=== PATIENT | female | born 1980 | race Caucasian/White ===

== ENCOUNTER 2022-01-21 11:53 | Outpatient (CLI) | payer BC, SELFPAY ==
[2022-01-21 17:25] LABS: Chloride* 104 mmol/L (96-114); Potassium* 4.7 mmol/L (3.6-5.1); Sodium* 136 mmol/L (135-149)
[2022-01-21 17:28] LABS: Carbon Dioxide* 25 mmol/L (20-32); Cholesterol* 218 mg/dL (90-199); Triglycerides* 71 mg/dL (40-149)
[2022-01-21 17:29] LABS: HDL Cholesterol* 67 mg/dL (>=50); LDL Cholesterol Calculated 137 mg/dL (<100)
[2022-01-21 17:46] LABS: Vitamin D 25 Hydroxy* 48 ng/mL (30-80)
[2022-01-21 18:00] LABS: Hepatitis B Surface Antigen* Negative (Negative)
[2022-01-21 18:17] LABS: Hepatitis C Virus Antibody* Negative (Negative)
[2022-01-21 18:43] LABS: HIV 1/2/P24 Combo Screen* Negative (Negative)
[2022-01-21 23:19] LABS: Chlamydia DNA Amplified* NOT DETECTED (No Detected); GC DNA Amplified* NOT DETECTED (No Detected)
[2022-01-24 09:58] LABS: Rapid Plasma Reagin (RPR) Non Reactive (Non Reactive)
== END 2022-01-21 11:54 | disposition home or self-care (01) ==
PROVIDERS: PCP Obstetrics & Gynecology; Visit Provider Obstetrics & Gynecology
DX: Z01.419 Encounter for gynecological examination (general) (routine) without abnormal findings (principal); Z11.3 Encounter for screening for infections with a predominantly sexual mode of transmission
CPT/HCPCS: 80051; 80061; 82306; 84443; 86592; 86703; 86803; 87340; 87491; 87591

== ENCOUNTER 2022-08-18 13:51 | Outpatient (CLI) | payer BC, SELFPAY ==
--- NOTE | 2022-08-18 14:00 | CRLHL7_ITS ---
For Patients: As a result of the Century Cures Act, medical imaging exams and procedure reports are released immediately into your electronic medical record. You may view this report before your referring provider. If you have questions, please contact your health care provider. BILATERAL SCREENING MAMMOGRAM WITH COMPUTER-AIDED DETECTION AND TOMOSYNTHESIS TECHNIQUE: CC and MLO views were obtained. These mammographic images have been obtained using full-field digital technique. These mammographic images were interpreted with the benefit of computer-aided detection. Breast Tomosynthesis was used in this interpretation. COMPARISON FILM: 01/06/20; 01/02/19; 12/25/18 FINDINGS: The breasts are heterogeneously dense, which may obscure small masses. IMPRESSION: There is no radiographic evidence for malignancy. ASSESSMENT: BI-RADS Category 1: Negative RECOMMENDATION: Routine screening mammogram in 1 year. A lay language report of this examination will be provided to the patient. Cheikh Garcia M.D. Diagnostic Radiologist [email or web address] MARCUS/abram Transcribed: 12:39 p.m. PT/Dictated by: Cheikh Garcia MD @ 08/19/2022 8:28:00 AM (Electronically Signed)
== END 2022-08-18 13:52 | disposition home or self-care (01) ==
LOC: MAMMO 13:53
PROVIDERS: Visit Provider Obstetrics & Gynecology
DX: Z12.31 Encounter for screening mammogram for malignant neoplasm of breast (principal); R92.2 Inconclusive mammogram
CPT/HCPCS: 77063; 77067

== ENCOUNTER 2023-02-16 07:15 | Outpatient (CLI) | payer BC, SELFPAY ==
--- NOTE | 2023-02-16 07:15 | CRLHL7_ITS ---
For Patients: As a result of the Century Cures Act, medical imaging exams and procedure reports are released immediately into your electronic medical record. You may view this report before your referring provider. If you have questions, please contact your health care provider. BILATERAL BREAST MRI WITHOUT AND WITH GADOLINIUM CLINICAL HISTORY: Strong family history of breast cancer due to family history. Her mother was diagnosed at age 36. INDICATION FOR BREAST MRI: Screening breast MRI in this high-risk woman. COMPARISON STUDIES: BILATERAL mammogram 08/18/2022, breast MRI 11/26/2021. CONTRAST: 20 mL Dotarem. TECHNIQUE: The patient was positioned prone using a breast coil. Multiple imaging sequences were obtained using 1-1.5 mm thick slices with no gap. The image sequences include T2-weighted STIR in the axial plane, T1-weighted nonfat-saturated gradient echo in the axial plane, pre- and post-contrast T1-weighted FLASH 3D with fat suppression in the axial plane, and T1-weighted FLASH high resolution 3D with fat suppression in the sagittal plane. Image post-processing was performed on a [employer] Ch[employer] workstation. Complex 3D rendering including maximum intensity projections (MIPS) and volumetric renderings were obtained to optimize visualization of the extent of pathology and relationship to the nipple, skin, and chest wall. This aids in determining feasibility of breast conservation surgery. Subtraction, multiplanar reconstruction, mean curve determination, and angiogenesis mapping were also performed. The study was technically adequate. FINDINGS: Amount of Fibroglandular Tissue: Scattered fibroglandular tissue. Breast Background Enhancement: Moderate background enhancement. RIGHT Breast: No suspicious mass or non mass enhancement. LEFT Breast: No suspicious mass or non mass enhancement. Lymph Nodes: Negative for lymphadenopathy. IMPRESSIONS AND RECOMMENDATIONS: Negative for signs of malignancy. Follow up as clinically needed. BI-RADS Category 1: Negative Dictated by Gina Huddleston MD @ 02/20/2023 3:44:46 PM/anna ISABELLA/Dictated by: Gina Huddleston MD @ 02/20/2023 3:45:00 PM (Electronically Signed)
--- NOTE | 2023-02-22 11:22 | ONC.NURNOTE ---
Lm for pt reviewing MRI results are negative for malignancy.
== END 2023-02-16 07:16 | disposition home or self-care (01) ==
LOC: MRI 07:15
PROVIDERS: PCP Obstetrics & Gynecology; Visit Provider Surgery
DX: Z80.3 Family history of malignant neoplasm of breast (principal); Z12.39 Encounter for other screening for malignant neoplasm of breast
CPT/HCPCS: 77049; A9575

== ENCOUNTER 2023-07-19 10:06 | Outpatient (CLI) | payer BC, SELFPAY ==
--- OUTSIDE RECORDS SUMMARY | 2023-07-19 10:08 | XMS_ITS | Clinical Summary ---
Author Name Unknown Organization [facility] Address [place], [place] [address] Care Team Providers Care House Designer Name Role Phone Jimmie Neal NP Primary Care Provider Allergies No known active allergies Medications Medication Sig Dispensed Refills Start Date End Date Status CITALOPRAM HYDROBROMIDE (CITALOPRAM ORAL) Take 40 mg by mouth once daily. 0 Active CHOLECALCIFEROL, VITAMIN D3, (VITAMIN D3 ORAL) Take 1 tablet by mouth once daily. 0 Active DOCOSAHEXANOIC ACID/EPA (FISH OIL ORAL) Take 1 capsule by mouth once daily. 0 Active Crutch For home use. 1 Device 0 12/27/2013 Active Social History Tobacco Use Types Packs/Day Years Used Date Smoking Tobacco: Never Assessed Sex and Gender Information Value Date Recorded Sex Assigned at Not on file Gender Identity Not on file Sexual Orientation Not on file Last Filed Vital Signs Vital Sign Reading Time Taken Comments Blood Pressure 131/74 12/27/2013 8:18 PM CDT Pulse 83 12/27/2013 8:18 PM CDT Temperature 37.8 ??C (100 ??F) 12/27/2013 8:18 PM CDT Respiratory Rate 16 12/27/2013 8:18 PM CDT Oxygen Saturation 98% 12/27/2013 8:18 PM CDT Inhaled Oxygen Concentration - - Weight 90.7 kg (200 lb) 12/27/2013 8:18 PM CDT Height 162.6 cm (5' 4.02) 12/27/2013 8:18 PM CD T Body Mass Index 34.31 12/27/2013 8:18 PM CDT Plan of Treatment Health Maintenance Due Date Last Done Comments COVID-19 vaccine series (#1) 02/03/1983 Tdap 1993 Depression screening for age 12+ 1994 HIV for age 15-65 1997 BMI (ht and wt on same day) for age 18+ 2000 Hepatitis C screening for age 18-79 2000 Tetanus booster 2002 Pap test for age 21-65 01/14/2023 0, 01/15/2020, 01/02/2019, Additional history exists Influenza for age 9-49 03/03/2023 Pneumococcal series for age 6-64 Aged Out No longer eligible based on patient's age to complete this topic Care Teams House Designer Relationship Specialty Start Date End Date Jimmie Neal NP PCP - General Nurse Practitioner 10/18/13
--- OUTSIDE RECORDS SUMMARY | 2023-07-19 10:08 | XMS_ITS | Encounter Summary ---
Author Name Unknown Organization [facility] Address [address] [place] [address] Care Team Providers Care Sponge Buffer Name Role Phone Pcp, Pt Declines MD Primary Care Provider [phone] Reason for Visit * Procedure/Equipment (Routine) - Incomplete Specialty Diagnoses / Procedures Referred By Contac t Referred To Contact Procedures Ortho Ultrasound Liberty Lyles MD [address] [id number] Referral ID Status Reason Start Date Expiration Date V isits Requested Visits Authorized [id number] Incomplete 07/17/2023 10/15/2024 1 1 Encounter Details Date Type Department Care Team Description 07/17/2023 11:40 AM DEPUTY COUNTY COUNSEL Ancillary Procedure [address] [address] Liberty Lyles MD [address] [id number] Social History Tobacco Use Types Packs/Day Years Used Date Smoking Tobacco: Never Alcohol Use Standard Drinks/Week Comments Yes 0 (1 standard drink = 0.6 oz pur e alcohol) Sex and Gender Information Value Date Recorded Sex Assigned at Not on file Gender Identity Not on file Sexual Orientation Not on file documented as of this encounter Plan of Treatment Not on file documented as of this encounter Procedures Procedure Name Priority Date/Time Associated Diagnosis Comments ORTHO ULTRASOUND Routine 07/17/2023 11:3 6 AM DEPUTY COUNTY COUNSEL documented in this encounter Results * Ortho Ultrasound (07/17/2023 11:36 AM DEPUTY COUNTY COUNSEL) Anatomical Region Laterality Modality Ultrasound Narrative 07/17/2023 11:36 AM DEPUTY COUNTY COUNSEL This imaging has been performed by the ordering department and is not read by a Radiologist, see notes in encounter for details on study. Liberty Lyles MD RAD US documented in this encounter Visit Diagnoses Not on filedocumented in this encounter Care Teams Sponge Buffer Relationship Specialty Start Date End Date Pcp, [place] [address] PCP - General 12/12/16 documented as of this encounter
--- OUTSIDE RECORDS SUMMARY | 2023-07-19 10:08 | XMS_ITS | Clinical Summary ---
Author Name Unknown Organization [facility] Address [address] [place] [address] Care Team Providers Care Watch Engine Operator Name Role Phone Pcp, Pt Declines Primary Care Provider [phone] Source Comments You are receiving this document as you are listed as the primary care provider,follow-up provider, or the patient has been referred to you for consultation.This is in compliance with the Medicare andN[facility] Hospitalca[facility] EHR Incentive Program,which states Providers who transition their patient to another setting of careor provider of care or refers their patient to another provider of care shouldprovide summary care record for each transition of care or referral. [facility] Allergies No known active allergies Medications Medication Sig Dispensed Refills Start Date End Date Status citalopram (CELEXA) 40 MG tablet Take 40 mg by mouth daily. 0 Active valACYclovir (VALTREX) 1 G tablet Take 1,000 mg by mouth two times a day. 0 Active hydrOXYzine pamoate (VISTARIL) 25 MG capsule Take 1-2 Caps by mouth 4 times daily as needed. 50 Cap 1 03/10/2017 Active HYDROcodone-acetaminophe n (NORCO) 5-325 MG tablet Take 1-2 Tabs by mouth every 4 hours as needed. 40 Tab 0 03/10/2017 Active LORazepam (ATIVAN) 1 MG tablet 0 01/13/2021 Active nitrofurantoin monohydrate macrocrystal (MACROBID) 100 MG capsule Take 100 mg by mouth two times a day. 0 12/02/2020 Active Active Problems No known active problems Encounters Date Type Department Care Team Description 07/17/2023 11:40 AM SENIOR DATA MINING ANALYST Ancillary Procedure [facility] [address] [place] [address] Liberty Lyles MD 07/17/2023 11:20 AM SENIOR DATA MINING ANALYST Procedure Visit [address] [address] Liberty Lyles MD Procedure 07/07/2023 3:20 PM SENIOR DATA MINING ANALYST Office Visit [address] [address] Dmitriy Lawrence MD Pain of right hip (Primary Dx) 06/28/[address] [address] Dmitriy Lawrence MD QUESTIONS, GENERAL 06/22/2023 4:00 PM SENIOR DATA MINING ANALYST Ancillary Procedure [facility] Radiology MRI [address] [facility] [place] [address] Dmitriy Lawrence MD Hip flexor tendonitis, right 06/08/[address] [address] Dmitriy Lawrence MD Prior Authorization For Imaging (MRI ) 05/26/2023 4:05 PM SENIOR DATA MINING ANALYST Ancillary Procedure [facility] Radiology [address] [place] [address] Dmitriy Lawrence MD Pain of right hip 05/26/2023 3:30 PM SENIOR DATA MINING ANALYST Office Visit [address] [address] Dmitriy Lawrence MD Hip flexor tendonitis, right (Primary Dx) from Last 3 Months Social History Tobacco Use Types Packs/Day Years Used Date Smoking Tobacco: Never Alcohol Use Standard Drinks/Week Comments Yes 0 (1 standard drink = 0.6 oz pur e alcohol) Sex and Gender Information Value Date Recorded Sex Assigned at Not on file Gender Identity Not on file Sexual Orientation Not on file Last Filed Vital Signs Vital Sign Reading Time Taken Comments Blood Pressure 110/90 03/10/2017 10:35 AM CDT Pulse 66 03/10/2017 10:35 AM CDT Temperature 37.1 ??C (98.7 ??F) 03/10/2017 10:05 AM C DT Respiratory Rate 16 03/10/2017 10:35 AM CDT Oxygen Saturation 97% 03/10/2017 10:35 AM CDT Inhaled Oxygen Concentration - - Weight 102.1 kg (225 lb) 02/16/2021 7:39 AM CDT Height 162.6 cm (5' 4) 02/16/2021 7:39 AM CDT Body Mass Index 38.62 02/16/2021 7:39 AM CDT Plan of Treatment Health Maintenance Due Date Last Done Comments Cervical Cancer Screening Due 1982 Hep C Screening (Preventive Services) 1982 HepB (1) 1982 COVID-19 Vaccine (#1) 02/03/1983 IPV (Polio) (3 of 3 - 4-dose series) 08/13/1988 02/11/1988, 08/16/1984 HIV Screening (Preventive Services) 1998 Adult Preventive Visit 2000 Influenza (#1) 2023 DTaP/Tdap/Td (5 - Tdap) 12/26/2027 12/26/19 18, 11/07/1997, 02/11/1988, Additional history exists Zoster/Shingles (1 of 2) 2032 HPV Vaccine Aged Out No longer eligi ble based on patient's age to complete this topic HepA Aged Out No longer eligi ble based on patient's age to complete this topic Hib Aged Out No longer eligi ble based on patient's age to complete this topic MCV4 Aged Out No longer eligi ble based on patient's age to complete this topic Pneumococcal Aged Out No longer eligi ble based on patient's age to complete this topic Medical Devices Implanted Type Area Fluid Jet Cutter Operator Device Identifier Shelf Expiration Date Model / Serial / Lot Scr Canc Lg Hex 6.5x50 16-Thrd - [id number] Implanted:Qty: 1 on 03/10/2017 by Roc Eddy MD at [employer]: [employer] 03/10/2017 [id number] / NA / NA Procedures Procedure Name Priority Date/Time Associated Diagnosis Comments ORTHO ULTRASOUND Routine 07/17/2023 11:3 6 AM SENIOR DATA MINING ANALYST MR HIP RT WO IV CONT Routine 06/22/2023 5:07 PM SENIOR DATA MINING ANALYST Hip flexor tendonitis, right XR LUMBAR SPINE 2 VIEWS Routine 05/26/2023 4:13 PM SENIOR DATA MINING ANALYST Pain of right hip from Last 3 Months Results * Ortho Ultrasound (07/17/2023 11:36 AM SENIOR DATA MINING ANALYST) Anatomical Region Laterality Modality Ultrasound Narrative 07/17/2023 11:36 AM SENIOR DATA MINING ANALYST This imaging has been performed by the ordering department and is not read by a Radiologist, see notes in encounter for details on study. Liberty Lyles MD RAD US * MR Hip Rt WO IV Cont (06/22/2023 5:07 PM SENIOR DATA MINING ANALYST) Anatomical Region Laterality Modality Lower Extremity, Skeletal, Pelvis, Hip, Thigh, M SK Right Magnetic Resonance 06/22/2023 5:07 PM SENIOR DATA MINING ANALYST Impressions 06/23/2023 7:53 AM SENIOR DATA MINING ANALYST TECHNIQUE: ??Routine MRI of the right hip was performed without contrast. COMPARISON: ??Radiograph 02/17/2023. FINDINGS: MUSCLES AND TENDONS: ??Mild tendinopathy of the distal right gluteus minimus and medius tendons at the greater trochanteric insertion. Focal feathery intramuscular edema superficial proximal lateral aspect of the right gluteus minimus medius and adjacent subcutaneous fat compatible with soft contusion/injection. Other muscles and tendons are within normal limits. MARROW AND SOFT TISSUES: ??Marrow signal is normal without evidence of fracture or avascular necrosis. There is no evidence of soft tissue mass. 1 cm round T2 hypointense lesion within the endometrium is suggestive of a submucosal fibroid. JOINT: ??There is no significant degenerative arthritis or evidence of focal cartilage defect. There are no osteocartilaginous loose bodies within the joint. There is no evidence of femoral acetabular impingement. The ligamentum teres is normal. ACETABULAR LABRUM: ??The acetabular labrum is normal without evidence of tear. IMPRESSION: ?? 1. Mild tendinopathy of the distal right gluteus minimus and medius tendons at the greater trochanteric insertion. 2. Focal feathery intramuscular edema superficial proximal lateral aspect of the right gluteus minimus medius and adjacent subcutaneous fat compatible with soft contusion/injection. 3. 1 cm round T2 hypointense lesion within the endometrium is suggestive of a submucosal fibroid. Recommend pelvic ultrasound for confirmation. 4. No significant arthropathy in the right hip. Narrative Procedure Note Chester Desir MD - 06/23/2023 IMPRESSION TECHNIQUE: Routine MRI of the right hip was performed without contrast. COMPARISON: Radiograph 02/17/2023. FINDINGS: MUSCLES AND TENDONS: Mild tendinopathy of the distal right gluteusminimus and medius tendons at the greater trochanteric insertion. Focalfeathery intramuscular edema superficial proximal lateral aspect of theright gluteus minimus medius and adjacent subcutaneous fat compatible withsoft contusion/injection. Other muscles and tendons are within normallimits. MARROW AND SOFT TISSUES: Marrow signal is normal without evidence offracture or avascular necrosis. There is no evidence of soft tissue mass.1 cm round T2 hypointense lesion within the endometrium is suggestive of asubmucosal fibroid. JOINT: There is no significant degenerative arthritis or evidence offocal cartilage defect. There are no osteocartilaginous loose bodieswithin the joint. There is no evidence of femoral acetabular impingement.The ligamentum teres is normal. ACETABULAR LABRUM: The acetabular labrum is normal without evidence oftear. IMPRESSION: 1. Mild tendinopathy of the distal right gluteus minimus and mediustendons at the greater trochanteric insertion. 2. Focal feathery intramuscular edema superficial proximal lateral aspectof the right gluteus minimus medius and adjacent subcutaneous fatcompatible with soft contusion/injection. 3. 1 cm round T2 hypointense lesion within the endometrium is suggestiveof a submucosal fibroid. Recommend pelvic ultrasound for confirmation. 4. No significant arthropathy in the right hip. Dmitriy Lawrence MD RAD MRI * XR Lumbar Spine 2 Views (05/26/2023 4:13 PM SENIOR DATA MINING ANALYST) Anatomical Region Laterality Modality Spine, L-Spine Digital Radiogra phy 05/26/2023 4:04 PM SENIOR DATA MINING ANALYST Impressions 05/26/2023 4:14 PM SENIOR DATA MINING ANALYST COMPARISON: ??None. FINDINGS: ??Two views were obtained. ??No lumbar spine fracture or subluxation is identified. ??Vertebral disk space height and alignment appear normal. Narrative Procedure Note Terry Gould MD - 05/26/2023 IMPRESSION COMPARISON: None. FINDINGS: Two views were obtained. No lumbar spine fracture orsubluxation is identified. Vertebral disk space height and alignmentappear normal. Dmitriy Lawrence MD RAD GD from Last 3 Months Care Teams Watch Engine Operator Relationship Specialty Start Date End Date Pcp, Pt MD Leyda [place], [place] [id number] PCP - General 12/12/16
--- OUTSIDE RECORDS SUMMARY | 2023-07-19 10:08 | XMS_ITS | Encounter Summary ---
Author Name Unknown Organization [facility] Address [address] [place] [address] Care Team Providers Care Virtualization Engineer Name Role Phone Pcp, Pt Declines MD Primary Care Provider [phone] Reason for Referral * (Routine) - New Request Specialty Diagnoses / Procedures Referred By Contac t Referred To Contact Diagnoses Pain of right hip Tendinopathy of right gluteal region Procedures Triamcinolone Acet Inj (40 mg) Liberty Lyles MD [address] [place] [address] Referral ID Status Reason Start Date Expiration Date V isits Requested Visits Authorized [id number] New Request 07/17/2023 10/15/2024 1 1 EX OPERATOR * Procedure/Equipment (Routine) - Incomplete Specialty Diagnoses / Procedures Referred By Contac t Referred To Contact Procedures Ortho Ultrasound Liberty Lyles MD [address] [place] [address] Referral ID Status Reason Start Date Expiration Date V isits Requested Visits Authorized [id number] Incomplete 07/17/2023 10/15/2024 1 1 EX OPERATOR Reason for Visit * Reason Comments Procedure * Consult/Transfer Care (Routine) - New Request Specialty Diagnoses / Procedures Referred By Contac t Referred To Contact Diagnoses Pain of right hip Dmitriy Lawrence MD [address] [facility] [place] [address] Referral ID Status Reason Start Date Expiration Date V isits Requested Visits Authorized [id number] New Request 07/07/2023 10/05/2024 1 1 Encounter Details Date Type Department Care Team Description 07/17/2023 11:20 AM VORTEX OPERATOR Procedure Visit [facility] [address] [place] [id number] Liberty Lyles MD [address] [place] [address] Procedure Social History Tobacco Use Types Packs/Day Years Used Date Smoking Tobacco: Never Alcohol Use Standard Drinks/Week Comments Yes 0 (1 standard drink = 0.6 oz pur e alcohol) Sex and Gender Information Value Date Recorded Sex Assigned at Not on file Gender Identity Not on file Sexual Orientation Not on file documented as of this encounter Patient Instructions * Patient Instructions* Jerry Lamb, ATC - 07/17/2023 11:20 AM VORTEX OPERATOR Thank you for choosing [facility] for your health care visit today. Please read the contents below for important information regarding today's appointment. Medication Requests: Prescriptions are not filled on weekends or on weekdays after 3:00 PM. For all medication refills: Request a refill using [employer] or contact your pharmacy. Radiology/MRI Scheduling: To schedule an MRI at [facility] please call [phone]. For [facility] please call [phone]. For [facility] please call [phone]. For [facility] please call [phone]. For [facility] please call [phone]. Medical Records/Imaging Requests: For Medical Records please call [phone]. For Images (CD) please call [phone]. [facility] Workers' Compensation [address] [place], [place] [address] (Phone) What is Know Your Cost? Know Your Cost is a service for patients and patient/members to call and receive personalized cost information and estimates across our care group. The phone number is (COST) and is open Monday - Monday from 8 a.m[address] to [address] Liberty Lyles MD Sports & Orthopedic Medicine [facility] Paperwork Requests/Questions Regarding Surgery Scheduling: All paperwork takes up to 10 business days to complete. Rocket Scientist: Jessica Holt Navigator: Alejo Cochran ATC Diagnosis: Diagnosis and Associated Orders ICD-10-CM 1. Pain of right hip M25.551 2. Tendinitis of right hip flexor M76.891 3. Hip flexor tendonitis, right M76.891 Tests Needed: None Treatment Plan: - Right intra-articular hip injection and right greater trochanteric bursa injection performed. Injection Today: Steroid Injection: Post injection instructions given. Watch for any sign of infection: Red, hot to touch and swollen, call or return immediately if so. Ice twice today for 20 minutes each time and three times tomorrow (20 minutes each session) for symptom management. OTC meds for pain only as needed (Tylenol extra strength-500mg) It is common to have facial flushing for a few days. You can also occasionally experience a feelingof restlessness for a few days after the injection. Any other concerns, give us a call. Follow up with PCP for general medical issues. The injection you received today may take 7-10 days to begin to reduce your pain and swelling. Cannot have a repeat steroid injection any sooner than 3 months. Cannot have a total joint replacement within 3 months of the last injection on affected body part due to infection risk. If you are a known diabetic, make sure to increase the frequency you check your blood sugars. Adjust accordingly. Steroid injections will increase your blood sugars for about 1 week. Follow-Up: You will follow up with Dr. Lawrence. Directions/Parking Instructions for [facility] is located in the [facility] in [facility]. If you are getting dropped off: Use the building main entrance located at [address] [place] [address]. Enter the building and [facility]. If you are driving/parking: [facility] has reserved Patient parking spots and validated parking in the parking garage located at [address] [facility]. The parking lot entrance is on your right between [address] Even if the parking ramp says FULL or Surcharge Pricing you may enter the ramp and use one of the [facility] Patient Parking spots free of charge. Take the elevators up to the 2nd floor. Walk straight out of the elevators toward [facility] and [facility] will be on your left. EX OPERATOR documented in this encounter Progress Notes * Liberty Lyles MD - 07/17/2023 11:20 AM CST Images from the original note were not included. Primary Care Sports Medicine Physician Liberty Lyles MD [facility] 42 y.o. Female : 1980 Referring physician: Dmitriy Lawrence MD [address] [facility] [place] [address] Ultrasound Guided Right IA hip and GTB Injection INDICATION: Right hip pain Referring MD: Dr. Lawrence Right Hip Joint Injection The risks, benefits, and alternatives were discussed with the patient who gave full verbal consent to proceed. A final pause was performed prior to the procedure to verify patient identification and site of procedure. Ultrasound imaging was used to identify the area for the injection and surrounding structures. The skin over the area to be injected was cleansed with chloraprep. Under ultrasound guidance the hip joint was visualized. The injection was performed under continuous ultrasound guidance. A 22-gauge 3.5 inch needle was used to inject 4cc of 1% lidocaine for local anesthesia. The needle was then advanced and 40 mg of triamcinolone and 4 cc of 0.5% ropivacaine was injected into the hip joint. Needle placement was confirmed within the joint under direct visualization using ultrasound. A sterile Band-Aid was applied. Patient tolerated the injection well and was discharged without complication. Images were saved permanently to the PACS system. Pre-procedure pain level 7/10, postprocedure pain level 7/10. Right Greater Trochanteric Bursa Injection The risks, benefits, and alternatives were discussed with the patient who gave full verbal consent to proceed. A final pause was performed prior to the procedure to verify patient identification and site of procedure. Ultrasound imaging was used to identify the area for the injection and surrounding structures. The skin over the area to be injected was cleansed with chloraprep. Under ultrasound guidance the greater trochanteric bursa was visualized. The injection was performed under continuous ultrasound guidance. A 22-gauge needle was used to inject 4cc of 1% lidocaine for local anesthesia. The needle was then advanced and 40 mg of triamcinolone and 4 cc of 0.5% ropivacaine was injected into the bursa. Needle placement was confirmed within the bursa under direct visualization using ultrasound. A sterile Band-Aid was applied. Patient tolerated the injection well and was discharged without complication. Images were saved permanently to the PACS system. Pre-procedure pain level 7/10, pos tprocedure pain level 7/10. Will follow up with Dr. Lawrence Post injection care and signs and symptoms to monitor for were discussed with the patient and provided with patient expressing understanding and agreement. All questions were answered. This document serves as a record of all services personally provided by Liberty Lyles MD. Documentation provided by Jerry Lamb ATC based on my personal observation of the services provided and the providers statements to me. Liberty Lyles MD Sports Medicine Physician ASHER Perdomo EX OPERATOR documented in this encounter Plan of Treatment Not on file documented as of this encounter Procedures Procedure Name Priority Date/Time Associated Diagnosis Comments ORTHO ULTRASOUND Routine 07/17/2023 11:3 6 AM VORTEX OPERATOR documented in this encounter Results * Ortho Ultrasound (07/17/2023 11:36 AM VORTEX OPERATOR) Anatomical Region Laterality Modality Ultrasound Narrative 07/17/2023 11:36 AM VORTEX OPERATOR This imaging has been performed by the ordering department and is not read by a Radiologist, see notes in encounter for details on study. Liberty Lyles MD [facility] documented in this encounter Visit Diagnoses Diagnosis Pain of right hip- Primary Tendinitis of right hip flexor Hip flexor tendonitis, right Tendinopathy of right gluteal region documented in this encounter Care Teams Virtualization Engineer Relationship Specialty Start Date End Date Pcp, [place] [address] PCP - General 12/12/16 documented as of this encounter
--- OUTSIDE RECORDS SUMMARY | 2023-07-19 10:09 | XMS_ITS | Encounter Summary ---
Author Name Unknown Organization [facility] Address [address] [place] [address] Care Team Providers Care Ice Crusher Name Role Phone Pcp, Pt Declines Primary Care Provider [phone] Reason for Visit * Procedure/Equipment (Routine) - Incomplete Specialty Diagnoses / Procedures Referred By Contac t Referred To Contact Diagnoses Pain of right hip Procedures XR Hip Rt 1 View Dmitriy Lawrence MD [address] [place] [address] [place] [address] Referral ID Status Reason Start Date Expiration Date V isits Requested Visits Authorized [id number] Incomplete 02/17/2023 05/18/2024 1 1 Encounter Details Date Type Department Care Team Description 02/17/2023 2:05 PM CDT Ancillary Procedure [facility] [address] [place], [place] [address] Dmitriy Lawrence MD [address] [place] [address] [place] [id number] Pain of right hip Social History Tobacco Use Types Packs/Day Years [...] Procedure Name Priority Date/Time Associated Diagnosis Comments XR PELVIS 1-2 VIEWS Routine 02/17/2023 2 :12 PM CDT Pain of right hip XR HIP RT 1 VIEW Routine 02/17/2023 2:12 PM CDT Pain of right hip documented in this encounter Results * XR Hip Rt 1 View (02/17/2023 2:12 PM CDT) Anatomical Region Laterality Modality Lower Extremity, Hip Digital Rad iography Narrative 05/06/2023 3:02 PM CDT AP pelvis, bilateral false profile and bilateral modified byrd hip films reviewed by me today. These demonstrate no fracture, dislocation, or significant joint interval narrowing. acetabular coverage is within normal limits and no cam lesions noted. Dmitriy Lawrence MD RAD GD * XR Pelvis 1-2 Views (02/17/2023 2:12 PM CDT) Anatomical Region Laterality Modality Pelvis Digital Radiogra phy Narrative 05/06/2023 3:02 PM CDT AP pelvis, bilateral false profile and bilateral modified byrd hip films reviewed by me today. These demonstrate no fracture, dislocation, or significant joint interval narrowing. acetabular coverage is within normal limits and no cam lesions noted. Dmitriy Lawrence MD [facility] documented in this encounter Visit Diagnoses Diagnosis Pain of right hip documented in this encounter Care Teams Ice Crusher Relationship Specialty Start Date End Date Pcp, [place] [address] PCP - General 12/12/16 documented as of this encounter
--- OUTSIDE RECORDS SUMMARY | 2023-07-19 10:09 | XMS_ITS | Encounter Summary ---
Author Name Unknown Organization [facility] Address [address] [place] [address] Care Team Providers Care Portrait Consultant Name Role Phone Pcp, Pt Declines MD Primary Care Provider [phone] Reason for Visit * Reason Comments Hip Problem * Therapies (Routine) - New Request Specialty Diagnoses / Procedures Referred By Otto bhatia Referred To Contact Diagnoses Pain of right hip Dmitriy Lawrence MD [address] [place] [address] Referral ID Status Reason Start Date Expiration Date V isits Requested Visits Authorized [id number] New Request 02/17/2023 02/17/2024 999 999 Encounter Details Date Type Department Care Team Description 03/16/2023 7:00 AM CDT Therapy [facility], Physical Therapy [address] [place] [address] Jun Veronica, PT [address] [place] [address] Pain of right hip (Primary Dx) Social History Tobacco Use Types Packs/Day Years Used Date Smoking Tobacco: Never Alcohol Use Standard Drinks/Week Comments Yes 0 (1 standard drink = 0.6 oz pur e alcohol) Sex and Gender Information Value Date Recorded Sex Assigned at Not on file Gender Identity Not on file Sexual Orientation Not on file documented as of this encounter Progress Notes * Jun Veronica, PT - 03/16/2023 7:00 AM CDT Physical Therapy Evaluation/Plan of Care Visit Number: 1 [place] Referring Provider: Dmitriy Lawrence MD Diagnosis: Hip flexor strain Orders: Eval and Treat SUBJECTIVE: Social History 42 yo female, works as a banker. She loves to run for exercise, also lifts wieghts 3x per week. Is a non smoker. Chief Complaint Right anterior medial hip region, described as an ache that is constant and variable from 3/10 provoked to 6/10 with a 3 mile walk. 2 miles into the walk she will feel her low back tired and weaknessfeeling come on. If she were to run 3 miles, then after she would get a 'shokcing' type pain only provoked with sit to stand transtion movements which then improves with walking a few minutes. Her aching, after a run would also be up to an 8/10. She is not waking at night but has severe low back weakness/tired pain with rolling and she has hip stiffness for an hour in the morning. After a run, her hip region will feel 'hot and swollen'. After a work out routine with lifting she feels her hip region is a little worse but nothing like running. Secondarily, the patient has a chronic tingling sensation with severe pain on palpatory pressure. She does not feel that this is related to either her lower lumbar symptoms or the hip symptoms. Self reported outcome measure hip outcome score = not completed Psychosocial screening: patient has history of depression and anxiety. She is pos on the phq2. History of Present: Onset of chief complaint approximately October of 2022. She links with restarting a running program after taking the winter off, starting with about 3 miles at a time, vs her regular 4 miles. Patient had been running in 2021 without issue. She notes 60# weight loss via diet and exercise including running and places high value on returning to run for fitness and weight control. She also notes that running is a primary mental health value for control of anxiety and depression. For the patient, the onset was gradual with worsening over approximately 6 months to the point that symptoms were too severe during sit to stand for the day after her runs and would have to take a day off in between runs to recovery and the right hip region would feel hot and swollen. She was seen by orthopaedic surgery first who ordered x-rays with diagnosis of hip flexor tendon strain vs intra-articular/labrum. She does not have dysplasia or any sign of early hip arthritis. Patient has chronic back pain that shetreats with resistance exercise. She also keeps her core tight as her back feels very weak. Her health has been stable over the past year. She does have a history of right calcaneal osteotomy along with peroneal tendon debridement that resulted in resolution of chronic ankle pain. She also has chronic lateral thigh pain of unknown origin that limits pressure and touch on the outside of the right thigh. Her regular strength training includes, lunges, leg press, squats, hamstring curls, resisted hip flexor strengthening. She feels reasonably well after her resistance exercise and is continuing these. She denies change in bb function, but does report 60 minutes of morning stiffness of the right hip Goals: 4-5 miles 4x per week of running NPRS: 11/09 Past Medical History: Diagnosis Date PONV (postoperative nausea and vomiting) Past Surgical History: Procedure Laterality Date ANKLE ARTHROSCOPY APPENDECTOMY Medications: reviewed Imaging Reviewed radiographs with MD read Review of Systems: Pos for n/t, pos for anxiety/depression OBJECTIVE: General: Mood, orientation, behavior were appropriate. Patient was alert and oriented. Observation/Inspection: normal gait and alignment AROM: Lumbar: Flexion = slow guarded and full. Extension 10 degrees painful low lumbar. Hip: Full and painless in all directions actively to overpressures. Joint mobility: UPAs grade 4++ non painful through the lumbar spine Flexibility: normal hip flexor and hamstring flexibility Neurological: WNL Neural Tissue: negative SLR Strength: Hip: ER90 5/5 IR90 5/5 abduction: 4+/5 dru. Flexion: 5/5 dru without pain Adduction: 5/5 wihtout pain. Extension: 4/5 dru without pain Palpation: ttp inguinal triangle. Non tender at the psoas. Non tender along the pubic ramus Special Tests: deferred SIJ testing Functional Tests: patient rolls with guarding, muscle tension, breath holding along the trunk muscles. TREATMENT TODAY: Physical Therapy Evaluation (CPT 28318): An evaluation was performed. The patient was determined tohave moderate complexity based on history, examination, clinical presentation of the patient and the PT's clinical decision making. The patient was educated on the condition, planned therapy intervention and the expectations from treatment. Goals were a collaborative effort of the therapist and patient. Neuromuscular re-education (CPT 90851) x 8 minutes: Educaiton on the nature of her condition Vicious cycle of pain and disability: Discussion and written education to improve control of movement and reduce muscle tension and activity avoidance. Avalon fist metaphor was used to illustrate theimpact of muscle tension and its link to peripheral sensitization. Information was linked with exposure to avoided movements. Plan for next treatment session: assessment of SIJ. Explore functional examination. PNE Timed Code Treatment Minutes: 8 Total Treatment Minutes: 60 ASSESSMENT: Therapist Impression: 42 yo female with chronic back/SI region pain and 6 month history of running related anterior hip and abdomin pain. No evidence of hernia and no abdominal wall tenderness on examination. Her examination is negative for intra-articular source. She has excellent strength and flexibility of her right hip flexor. Provisional diagnosis is referred lumbar/SIJ pain as source of symp toms. This is evidenced by pain with active lumbar ROM, along with rolling and transitional movements while having non painful active and passive hip testing. Rehab Prognosis: Good for goals stated unless otherwise noted in assessment PLAN: Planned Intervention/Education: Evaluation, Re-Evaluation, Education, Therapeutic Exercise, Manual Therapy, Neuromuscular Re-education, Self Care/Home Management, Gait Training, Therapeutic Activities, Isokinetic/Performance Testing PT Frequency/Duration: 1 x/week for 12 weeks for a total of 12 visits Discharge Plan: Goal achievement, goal achievement with home exercise program or if progress plateaus. Informed Consent: Risks, benefits and alternatives to treatment have been explained. Patient and/orfamily in agreement with care plan. EXPECTED FUNCTIONAL OUTCOMES/GOALS: running Evaluation and Plan of Care completed by: Jun Veronica PT 3:23 PM 03/16/2023 No plan of care certification necessary. documented in this encounter Plan of Treatment Scheduled Referrals Name Type Priority Associated Diagnoses Orde r Schedule Physical Therapy Referral Routine Pain of right hip Ordered: 02/17/2023 documented as of this encounter Visit Diagnoses Diagnosis Pain of right hip- Primary documented in this encounter Care Teams Portrait Consultant Relationship Specialty Start Date End Date Pcp, [place] [address] PCP - General 12/12/16 documented as of this encounter
--- OUTSIDE RECORDS SUMMARY | 2023-07-19 10:09 | XMS_ITS | Encounter Summary ---
Author Name Unknown Organization [facility] Address [address] [place] [address] Care Team Providers Care C D Reactor Operator Name Role Phone Pcp, Pt Declines Primary Care Provider [phone] Reason for Visit * Reason Comments Prior Authorization For Imaging MRI Encounter Details Date Type Department Care Team Description 06/08/2023 Telephone [facility] [address] [place] [address] [id number] Dmitriy Tapia MD [address] [place] [address] Prior Authorization For Imaging (MRI ) Social History Tobacco Use Types Packs/Day Years Used Date Smoking Tobacco: Never Alcohol Use Standard Drinks/Week Comments Yes 0 (1 standard drink = 0.6 oz pur e alcohol) Sex and Gender Information Value Date Recorded Sex Assigned at Not on file Gender Identity Not on file Sexual Orientation Not on file documented as of this encounter Nursing Notes * Venecia Davis RN - 06/19/2023 1:45 PM CST LVM for patient and provided scheduling number for Hip MRI. Lumbar has been denied. Please review: Hip MRI: Approved Lumbar MRI: Denied Prior Authorization Approval Date Entered: 06/16/23 12:10 PM CPT: 80219 Procedure: MR HIP RT WO IV CONT DX: M76.891 DOS: TBD Inpatient/Outpatient: CLINIC Provider: DMITRIY TAPIA MD Location: [facility] Insurance: [facility] Contact/Submission: WEBSITE- [employer] Auth #: [id number] Reference #: [id number] Auth Dates: 06/13/2023 - 07/31/2023 Fax Attached: NO Authorization Denied Date Entered: 06/16/23 12:11 PM CPT: 51028 Procedure: MR LUMBAR SPINE WO IV CONT DX: M76.891 DOS: TBD Inpatient/Outpatient: CLINIC Provider: DMITRIY TAPIA MD Location: [facility] Reference #: [id number] Case#: [id number] Denial Reason: Not medically necessary Insurance: [facility] Contact/Submission: WEBSITE- [employer] Fax Attached: NO The request cannot be approved because: Imaging requires six weeks of provider directed treatment to be completed. This must have been completed in the past three months without improved symptoms. Contact (via office visit, phone, email, or messaging) must occur after the treatment is completed. This has not been met because: You have not completed six weeks of provider directed treatment. Symptoms must be the same or worse after treatment to support imaging. P2P eviCore at [phone], option 4. UTER ASSISTANT * Kriss Mariano - 06/16/2023 12:19 PM CST Images from the original note were not included. Please review: Hip MRI: Approved Lumbar MRI: Denied Prior Authorization Approval Date Entered: 06/16/23 12:10 PM CPT: 56206 Procedure: MR HIP RT WO IV CONT DX: M76.891 DOS: TBD Inpatient/Outpatient: CLINIC Provider: DMITRIY TAPIA MD Location: [facility] Insurance: [facility] Contact/Submission: [employer] Auth #: [id number] Reference #: [id number] Auth Dates: 06/13/2023 - 07/31/2023 Fax Attached: NO Authorization Denied Date Entered: 06/16/23 12:11 PM CPT: 43363 Procedure: MR LUMBAR SPINE WO IV CONT DX: M76.891 DOS: TBD Inpatient/Outpatient: CLINIC Provider: DMITRIY TAPIA MD Location: [facility] Reference #: [id number] Case#: [id number] Denial Reason: Not medically necessary Insurance: [facility] Contact/Submission: WEBSITE- [employer] Fax Attached: NO The request cannot be approved because: Imaging requires six weeks of provider directed treatment to be completed. This must have been completed in the past three months without improved symptoms. Contact (via office visit, phone, email, or messaging) must occur after the treatment is completed. This has not been met because: You have not completed six weeks of provider directed treatment. Symptoms must be the same or worse after treatment to support imaging. P2P eviCore at [phone], option 4. UTER ASSISTANT * Venecia Davis RN - 06/15/2023 8:58 AM CST PA was submitted 06/14/2023. Current status is pending. Delay of PA submission was due to office notes not available. Spoke to Pt who plans to call her insurance for an update and will reach back out. Pt to call back if any further assistance is needed. UTER ASSISTANT * Kriss Mariano - 06/15/2023 8:35 AM CST Routing to Nurse Triage team UTER ASSISTANT * Naima Martin - 06/15/2023 8:24 AM CST Patient is calling back. Patient states it has been almost 15 days since having MRI ordered.. Patient is getting a bit frustrated that she has not heard back yet about approval. Patient is wanting toget this scheduled. UTER ASSISTANT * Kriss Mariano - 06/13/2023 8:10 AM CST Images from the original note were not included. Prior Authorization Pending Date Entered: 06/13/23 8:07 AM CPT: 54007 / 50721 Procedure: MR HIP RT WO IV CONT / MR LUMBAR SPINE WO IV CONT DX: M76.891 DOS: TBD Inpatient/Outpatient: CLINIC Provider: DMITRIY TAPIA MD Location: [facility] Reference #: [id number] Case#: [id number] Insurance: [facility] Contact/Submission: [facility]- [facility] Clinicals Sent: YES UTER ASSISTANT * Beverly Holley - 06/12/2023 8:47 AM CST GENERAL QUESTIONS How may we help you today? Patient is calling in follow up to previous request regarding the PA. Now that office visit notes have been sent to insurance approximately how long could it take to get a PA. Is there any way to expedite the request on her behalf? Please call patient with an estimate on how many days it may take. Describe your symptoms/concerns: MRI PA When did the issue start: 05/26/2023 Have you been seen for this recently?: Yes: Date: 05/26/2023 Provider: Dmitriy Tapia MD If we are unable to reach you can we leave a detailed message on your voicemail? Yes If we are unable to reach you can we send you a message in Foody? No [Diffusion Furnace Operator/Radiographer Cardiac Catheterization: Relay to patient; We make every effort to get back to you sameday, however it may take 1-2 business days depending on the nature of the communication.] UTER ASSISTANT * Kim Marte - 06/08/2023 4:57 PM CST Images from the original note were not included. NEED 05/26 OFFICE NOTE TO START PA Attempted to start PA, but this [facility] plan requires office notes be submitted for eviCore to review. Once Dr. Tapia's note is available, we'll be able to start working on this request. Request withdrawn for now to avoid a denial for lack of clinical. UTER ASSISTANT * Melissa Rodriguez - 06/08/2023 3:20 PM CST To Whom it May Concern: We are requesting Prior Authorization for this patient's next plan of care. Once approval has been granted we will assist in contacting the patient or scheduling the patient for their appropriate services. Patient Name Renetta Tomlinson 1980 Patient Insurance [employer] [place] Body Part Hip and Lumbar Procedure Name MR Lumbar and rt hip wo iv cont and Ordering Provider Howard Requesting Location [facility] UTER ASSISTANT documented in this encounter Plan of Treatment Not on file documented as of this encounter Visit Diagnoses Not on filedocumented in this encounter Care Teams C D Reactor Operator Relationship Specialty Start Date End Date Pcp, [place] [address] PCP - General 12/12/16 documented as of this encounter
--- OUTSIDE RECORDS SUMMARY | 2023-07-19 10:09 | XMS_ITS | Encounter Summary ---
Author Name Unknown Organization [facility] Address [address] [place] [address] Care Team Providers Care House Nurse Name Role Phone Pcp, Pt Declines Primary Care Provider [phone] Reason for Visit * Procedure/Equipment (Routine) - Closed Specialty Diagnoses / Procedures Referred By Otto t Referred To Contact Diagnoses Pain of right hip Procedures MR Hip Rt WO IV Cont Dmitriy Lawrence MD [address] [facility] [place] [address] Referral ID Status Reason Start Date Expiration Date Visits Re quested Visits Authorized [id number] Closed 05/26/2023 08/24/2024 1 1 Encounter Details Date Type Department Care Team Description 06/22/2023 4:00 PM ACCIDENT EXAMINER Ancillary Procedure [facility] Radiology MRI [address] [facility] [place] [address] Dmitriy Lawrence MD [address] [place] [id number] Hip flexor tendonitis, right Social History Tobacco Use Types Packs/Day Years [...] Procedure Name Priority Date/Time Associated Diagnosis Comments MR HIP RT WO IV CONT Routine 06/22/2023 5:07 PM ACCIDENT EXAMINER Hip flexor tendonitis, right documented in this encounter Results * MR Hip Rt WO IV Cont (06/22/2023 5:07 PM ACCIDENT EXAMINER) Anatomical Region Laterality Modality Lower Extremity, Skeletal, Pelvis, Hip, Thigh, M SK Right Magnetic Resonance 06/22/2023 5:07 PM ACCIDENT EXAMINER Impressions 06/23/2023 7:53 AM ACCIDENT EXAMINER TECHNIQUE: ??Routine MRI of the right hip [...] right hip. Dmitriy Lawrence MD RAD MRI documented in this encounter Visit Diagnoses Diagnosis Hip flexor tendonitis, right documented in this encounter Care Teams House Nurse Relationship Specialty Start Date End Date Pcp, [place] [address] PCP - General 12/12/16 documented as of this encounter
--- OUTSIDE RECORDS SUMMARY | 2023-07-19 10:09 | XMS_ITS | Encounter Summary ---
Author Name Unknown Organization [facility] Address [address] [place] [address] Care Team Providers Care Gas Treater Name Role Phone Pcp, Pt Declines MD Primary Care Provider [phone] Reason for Referral * Procedure/Equipment (Routine) - Incomplete Specialty Diagnoses / Procedures Referred By Contac t Referred To Contact Diagnoses Pain of right hip Procedures MR Lumbar Spine WO IV Cont Dmitriy Lawrence MD [address] [place] [address] Referral ID Status Reason Start Date Expiration Date V isits Requested Visits Authorized [id number] Incomplete 05/26/2023 08/24/2024 1 1 ANESTHESIA ANALYST * Procedure/Equipment (Routine) - Closed Specialty Diagnoses / Procedures Referred By Contac t Referred To Contact Diagnoses Pain of right hip Procedures MR Hip Rt WO IV Cont Dmitriy Lawrence MD [address] [place] [address] Referral ID Status Reason Start Date Expiration Date Visits Re quested Visits Authorized [id number] Closed 05/26/2023 08/24/2024 1 1 ANESTHESIA ANALYST * Procedure/Equipment (Routine) - Incomplete Specialty Diagnoses / Procedures Referred By Contac t Referred To Contact Diagnoses Pain of right hip Procedures XR Lumbar Spine 2 Views Dmitriy Lawrence MD [address] [place] [address] Referral ID Status Reason Start Date Expiration Date V isits Requested Visits Authorized [id number] Incomplete 05/26/2023 08/24/2024 1 1 ANESTHESIA ANALYST Reason for Visit * Reason Comments HIP PAIN right Encounter Details Date Type Department Care Team Description 05/26/2023 3:30 PM EPIC ANESTHESIA ANALYST Office Visit [facility] [address] [facility] [place] [address] Dmitriy Lawrence MD [address] [facility] [place] [id number] Hip flexor tendonitis, right (Primary Dx) Social History Tobacco Use Types Packs/Day Years Used Date Smoking Tobacco: Never Alcohol Use Standard Drinks/Week Comments Yes 0 (1 standard drink = 0.6 oz pur e alcohol) Sex and Gender Information Value Date Recorded Sex Assigned at Not on file Gender Identity Not on file Sexual Orientation Not on file documented as of this encounter Patient Instructions * Patient Instructions* Lashae Duarte, ATC - 05/26/2023 3:30 PM EPIC ANESTHESIA ANALYST Thank you for Choosing [facility] for your health care visit today. Dr. Dmitriy Lawrence MD Orthopaedic Surgeon Consulting Senior Practice Director: Elly Flowers Lumbar spine MR and Right hip MR Medication Requests: Prescriptions are not filled on weekends or on weekdays after 3:00 PM. For all medication refills: Request a refill using [employer] or contact your pharmacy. What is Know Your Cost? Know Your Cost is a service for patients and patient/members to call and receive personalized cost information and estimates across our care group. The phone number is (COST) Monday - Monday 8 AM to 5 PM Advanced Imaging Scheduling: To schedule an MRI, Ultrasound, or Image guided injection at [facility] please call [phone]. To schedule an MRI or CT at a [facility] location please call [phone]. [employer] [address] [place] [address] (Phone) Email: [email or web address] Release of Information: Radiology/Imaging [address] [place] [address] (Phone) Health Information Management [address] [place] [address] (Phone) [employer] ANESTHESIA ANALYST documented in this encounter Progress Notes * Dmitriy Lawrence MD - 05/26/2023 3:30 PM CST SUMMARY OF CLINICAL VISIT DIAGNOSIS: Right hip flexor tendonitis and symptoms suggestive of labral tear (nonresponsive to extensive physical therapy) PLAN AND DISPOSITION: MRI right hip, follow up to review results. IMAGING FOR NEXT VISIT: As above CHIEF COMPLAINT: Right hip pain HISTORY OF PRESENT ILLNESS: This is a generally healthy 42 y.o. female who I am seeing in consultation requested by SELF. History is obtained from the patient. Briefly, She has been doing PT since her last visit but has remained symptomatic. When specifically asked to describe the pain in detail, the patient reports the following: Pain duration: as above Initial onset: as above The pain is located primarily in the anterior region of the hip. The pain is rated as 5 on a 0 to 10 numeric VAS scale. Pain is described as a aching type of pain. The patient reports that sitting does worsen the pain. Pain is worse with standing longs periods of time. Walking and particularly running aggravates the pain. Pain is relieved by rest. The patient reports that clicking and popping is not associated with pain. The patient denies associated weakness and irradiation to the lower extremities. There is denies associated lower back pain. Previous treatment includes activity modification and PT (for 3 months) without any relief. REVIEW OF SYSTEMS Constitutional: no history of recent fever, recent weight loss or chills. HEENT: Negative Respiratory: No dyspnea Cardiovascular: No symptoms Gastrointestinal: Denies diarrhea or vomiting Genitourinary: Negative Endocrine: Negative Integumentary: Negative for the presence of rashes, mosquito bites Hematologic/Lymphatic: Negative Neurologic: No complaints Psychiatric: No complaints PHYSICAL EXAMINATION: On physical examination, the patient appears to be generally healthy, well developed, well-nourished and in no acute distress. The patient is alert, oriented x3 and is cooperative to examination withpreserved mood. Head normocephalic and non-traumatic. Eyes have normal sclerae, anicteric, outer ear and nose have no apparent deformity. The oral mucous membranes are moist. Neck is supple with no obvious mass or deformity and has full range of active motion. There is no lymphadenopathy. Chest expansion is normal and the patient is breathing with regular rhythm without respiratory effort. The abdomen feels soft, and it is not tender to palpation. Peripheral radial and pedal pulses are symmetric with regular rate and rhythm and capillary perfusion is under 2 seconds in both hands and feet andno swelling. The skin is intact, normal temperature and turgor in the right and left upper and lower extremities with no visible rash or ulcer. Musculoskeletal: On stance, the lower extremity alignment is within normal limits. The spinal alignment is straight. The pelvis is leveled and there is no major lower limb length discrepancy. Upper extremity exam is unremarkable. I did not notice contractures or deformities and there is full stablerange of motion and intact motor function of the shoulders, elbows, wrists and hands bilaterally. Knees and ankle evaluation is overall within normal limits with no major deformity and stable active normal motion. Straight-leg raising test is normal bilaterally without eliciting pain. Neurologic evaluation of the lower extremities reveals intact sensation to light touch in both legs and feet and n ormal (5/5) active muscle function for hip flexion, abduction, extension and knee extension and flexion. Patellar tendon reflex is brisk and within normal limits bilaterally. Gait: The patient uses no assistive device. The gait evaluation reveals normal gait pattern withouta limp. Foot progression angle is within normal limits. The patella is aligned. RIGHT HIP EXAM Flexion: 120 degrees Internal rotation at 90o of flexion: 25 degrees External rotation at 90o of flexion: 45 degrees Abduction: 45 degrees Anterior impingement test: positive Posterior impingement test: negative Apprehension test: negative Stinchfield (resisted flexion) test: positive Provocative snapping hip: negative Trendelenburg: negative Nolberto test: negative Tenderness to palpation of the iliopsoas at the brim. LEFT HIP EXAM Flexion: 120 degrees Internal rotation at 90o of flexion: 25 degrees External rotation at 90o of flexion: 35 degrees Abduction: 45 degrees Anterior impingement test: negative Posterior impingement test: negative Apprehension test: negative Stinchfield (resisted flexion) test: negative Provocative snapping hip: negative Trendelenburg: negative Nolberto test: negative No tenderness to palpation noted. Imaging: AP pelvis, bilateral false profile and bilateral modified byrd hip films reviewed by me today. These demonstrate no fracture, dislocation, or significant joint interval narrowing. acetabular coverageis within normal limits and no cam lesions noted. IMPRESSION: Right hip flexor tendonitis and symptoms suggestive of labral tear (nonresponsive to extensive physical therapy) Suggested Diagnostic/Therapeutic Plan: I reviewed the patients imaging, physical exam, and history findings in full detail. Given her persistent symptoms derspite extensive PT, I would like to obtain an MRI of the right hip to evaluate for labral tear. She will follow up to review the results. She is in agreement with this plan. A totalof 40 minutes was spent on this visit in reviewing the chart, interpreting images, seeing and evaluating the patient, discussing treatment, coordinating care, and completing documentation. Dmitriy Lawrence MD ANESTHESIA ANALYST documented in this encounter Plan of Treatment Scheduled Orders Name Type Priority Associated Diagnoses Orde r Schedule MR Lumbar Spine WO IV Cont Imaging New Routine Hip flexor tendonitis, right Expected: 05/26/2023 (Approximate), Expires: 05/25/2024 documented as of this encounter Results * MR Hip Rt WO IV Cont (06/22/2023 5:07 PM EPIC ANESTHESIA ANALYST) Anatomical Region Laterality Modality Lower Extremity, Skeletal, Pelvis, Hip, Thigh, M SK Right Magnetic Resonance 06/22/2023 5:07 PM EPIC ANESTHESIA ANALYST Impressions 06/23/2023 7:53 AM EPIC ANESTHESIA ANALYST TECHNIQUE: ??Routine MRI of the right [...] Lumbar Spine 2 Views (05/26/2023 4:13 PM EPIC ANESTHESIA ANALYST) Anatomical Region Laterality Modality Spine, L-Spine Digital Radiogra phy 05/26/2023 4:04 PM EPIC ANESTHESIA ANALYST Impressions 05/26/2023 4:14 PM EPIC ANESTHESIA ANALYST COMPARISON: ??None. FINDINGS: ??Two views were obtained. ??No lumbar spine fracture or subluxation is identified. ??Vertebral disk space height and alignment appear normal. Narrative Procedure Note Terry Gould MD - 05/26/2023 IMPRESSION COMPARISON: None. FINDINGS: Two views were obtained. No lumbar spine fracture orsubluxation is identified. Vertebral disk space height and alignmentappear normal. Dmitriy Lawrence MD RAD GD documented in this encounter Visit Diagnoses Diagnosis Hip flexor tendonitis, right- Primary Pain of right hip Hip flexor tendonitis, right documented in this encounter Care Teams Gas Treater Relationship Specialty Start Date End Date Pcp, [place] [address] PCP - General 12/12/16 documented as of this encounter
--- OUTSIDE RECORDS SUMMARY | 2023-07-19 10:09 | XMS_ITS | Encounter Summary ---
Author Name Unknown Organization [facility] Address [address] [place] [address] Care Team Providers Care Electrical Sign Servicer Name Role Phone Pcp, Pt Declines Primary Care Provider [phone] Reason for Visit * Reason Comments QUESTIONS, GENERAL Encounter Details Date Type Department Care Team Description 06/28/2023 Telephone [facility] [address] [place] [address] Dmitriy Lawrence MD [address] [place] [address] QUESTIONS, GENERAL Social History Tobacco Use Types Packs/Day Years Used Date Smoking Tobacco: Never Alcohol Use Standard Drinks/Week Comments Yes 0 (1 standard drink = 0.6 oz pur e alcohol) Sex and Gender Information Value Date Recorded Sex Assigned at Not on file Gender Identity Not on file Sexual Orientation Not on file documented as of this encounter Nursing Notes * Venecia Davis RN - 06/28/2023 1:22 PM CST Spoke to patient. Assisted in scheduling MRI follow up with Dr. Lawrence. Pt opted to come in person to clinic to discuss results. No further questions at this time. TWISTER * Jun Ryan - 06/28/2023 1:09 PM CST GENERAL QUESTIONS How may we help you today? Patient is requesting a call back from the care team. Describe your symptoms/concerns: Patient is looking to go over MRI results, video games storywriter did express to patient that office notes from 05/26 mention to follow up in clinic after results. Patient states [facility] said they would get a call in 1-2 business days for the results. Please advise When did the issue start: n/a Have you been seen for this recently?: No If we are unable to reach you can we leave a detailed message on your voicemail? Yes If we are unable to reach you can we send you a message in [employer]? No [Drink Mixer/Canadian Bacon Tier: Relay to patient; We make every effort to get back to you sameday, however it may take 1-2 business days depending on the nature of the communication.] TWISTER documented in this encounter Plan of Treatment Not on file documented as of this encounter Visit Diagnoses Not on filedocumented in this encounter Care Teams Electrical Sign Servicer Relationship Specialty Start Date End Date Pcp, [place] [address] PCP - General 12/12/16 documented as of this encounter
--- OUTSIDE RECORDS SUMMARY | 2023-07-19 10:09 | XMS_ITS | Encounter Summary ---
Author Name Unknown Organization [facility] Address [address] [place] [address] Care Team Providers Care Lawyer Real Estate Name Role Phone Pcp, Pt Declines Primary Care Provider [phone] Reason for Visit * Procedure/Equipment (Routine) - Incomplete Specialty Diagnoses / Procedures Referred By Contac t Referred To Contact Diagnoses Pain of right hip Procedures XR Lumbar Spine 2 Views Dmitriy Lawrence MD [address] [place] [address] Referral ID Status Reason Start Date Expiration Date V isits Requested Visits Authorized [id number] Incomplete 05/26/2023 08/24/2024 1 1 Encounter Details Date Type Department Care Team Description 05/26/2023 4:05 PM INTERNAL GRINDER SET UP OPERATOR Ancillary Procedure [facility] [address] [place], [place] [address] Dmitriy Lawrence MD [address] [facility] [address] [place] [address] Pain of right hip Social History Tobacco [...] Name Priority Date/Time Associated Diagnosis Comments XR LUMBAR SPINE 2 VIEWS Routine 05/26/2023 4:13 PM INTERNAL GRINDER SET UP OPERATOR Pain of right hip documented in this encounter Results * XR Lumbar Spine 2 Views (05/26/2023 4:13 PM INTERNAL GRINDER SET UP OPERATOR) Anatomical Region Laterality Modality Spine, L-Spine Digital Radiogra phy 05/26/2023 4:04 PM INTERNAL GRINDER SET UP OPERATOR Impressions 05/26/2023 4:14 PM INTERNAL GRINDER SET UP OPERATOR COMPARISON: ??None. FINDINGS: ??Two views were obtained. [...] hip documented in this encounter Care Teams Lawyer Real Estate Relationship Specialty Start Date End Date Pcp, [place] [address] PCP - General 12/12/16 documented as of this encounter
--- OUTSIDE RECORDS SUMMARY | 2023-07-19 10:09 | XMS_ITS | Encounter Summary ---
Author Name Unknown Organization [facility] Address [address] [place] [address] Care Team Providers Care Dye Box Operator Name Role Phone Pcp, Pt Leyda JIN Primary Care Provider [phone] Reason for Referral * Consult/Transfer Care (Routine) - New Request Specialty Diagnoses / Procedures Referred By Otto bhatia Referred To Contact Diagnoses Pain of right hip Dmitriy Lawrence MD [address] [place] [id number] Referral ID Status Reason Start Date Expiration Date V isits Requested Visits Authorized [id number] New Request 07/07/2023 10/05/2024 1 1 Scheduling Instructions Your clinician has recommended an appointment with [facility]. You can quickly make your appointment online at [facility]/schedule. You can also call [phone] for help scheduling your appointment. We suggest you call your health insurance company about your coverage and benefits for this appointment. Question Answer Appointment Urgency? Non-Urgent Evaluation or Procedure: Procedure Injection: Steriod & Anesthetic Laterality Right Procedure Location Lower Extremity Lower Extremity: Intra - Articular Hip, Lateral hip/Glut (trochanter) Reason for visit? right hip pain - both IA and greater trochanteric bursa steroid injections ET REPORT CLERK Reason for Visit * Reason Comments MRI Results Encounter Details Date Type Department Care Team Description 07/07/2023 3:20 PM BUDGET REPORT CLERK Office Visit [address] [address] Dmitriy Lawrence MD [address] [facility] [address] [place], [place] [address] Pain of right hip (Primary Dx) Social [...] this encounter Patient Instructions * Patient Instructions* Kendrick Ray ATC - 07/07/2023 3:20 PM BUDGET REPORT CLERK Thank you for Choosing [facility] for your health care visit today. Dr. Dmitriy Lawrence MD Orthopaedic Surgeon Obstetrics And Gynecology Professor: Elly Flowers To obtain a disc with your images, please call [phone] ET REPORT CLERK documented in this encounter Plan of Treatment Scheduled Referrals Name Type Priority Associated Diagnoses Orde r Schedule ORTHOPAEDIC ULTRASOUND EVALUATION/PROCEDURE Referral Routine Pain of right hip Ordered: 07/07/2023 documented as of this encounter Visit Diagnoses Diagnosis Pain of right hip- Primary documented in this encounter Care Teams Dye Box Operator Relationship Specialty Start Date End Date Pcp, [place] [address] PCP - General 12/12/16 documented as of this encounter
--- OUTSIDE RECORDS SUMMARY | 2023-07-19 10:09 | XMS_ITS | Encounter Summary ---
Author Name Unknown Organization [facility] Address [address] [place] [address] Care Team Providers Care Agricultural Technician Name Role Phone Pcp, Pt Declines Primary Care Provider [phone] Reason for Visit * Reason Comments Hip Problem Encounter Details Date Type Department Care Team Description 03/22/2023 8:00 AM CDT Therapy [facility], Physical Therapy [address] [place] [address] [place] [address] Jun Veronica, PT [address] [facility] [place] [address] Pain of right hip (Primary Dx); SI (sacroiliac) joint dysfunction (HRC) Social History Tobacco Use Types Packs/Day Years Used Date Smoking Tobacco: Never Alcohol Use Standard Drinks/Week Comments Yes 0 (1 standard drink = 0.6 oz pur e alcohol) Sex and Gender Information Value Date Recorded Sex Assigned at Not on file Gender Identity Not on file Sexual Orientation Not on file documented as of this encounter Progress Notes * Jun Veronica, PT - 03/22/2023 8:00 AM CDT [facility] Progress Note Visit Number: 2 [employer] [place] Referring Provider: Dmitriy Lawrence MD Diagnosis: Hip flexor strain Orders: Eval and Treat SUBJECTIVE EXAM: Last visit made sense a little regarding education on pain cycle. She is able to walk and use eliptical without limitation. Feels like she needs to stretch but stretching doesn't help Pain: CURRENT: NA Confidence: Low back = 0/10, feels weak, tired and vulnerable OBJECTIVE EXAM: Observation/Inspection: normal gait and alignment AROM: Lumbar: Flexion = slow guarded and full. Extension 10 degrees painful low lumbar. Hip: Full and painless in all directions actively to overpressures. Joint mobility: UPAs grade 4++ non painful through the lumbar spine Flexibility: normal hip flexor and hamstring flexibility Neural Tissue: negative SLR Strength: Hip: ER90 5/5 IR90 5/5 abduction: 4+/5 dru. Flexion: 5/5 dru without pain Adduction: 5/5 wihtout pain. Extension: 4/5 dru without pain Palpation: ttp inguinal triangle. Non tender at the psoas. Non tender along the pubic ramus Special Tests: SIJ testing is negative Functional Tests: Rolling: patient rolls with guarding, muscle tension, breath holding along the trunk muscles. Supine to sit: sit up causes tightness sensation low back and anterior hip Sit to stand: Hands push, slow with breath holding Single leg sit to stand: Unable on the right just wont do it TREATMENT: Neuromuscular Re-Education - to improve coordination, control, and understanding of pain problem x 60 minutes Pain Education - Vicious cycle of pain and disability: Discussion and written education to improve control of movement and reduce muscle tension and activity avoidance. [place] fist metaphor was used to illustrate the impact of muscle tension and its link to peripheral sensitization. Information was linked with exposure to avoided movements. - Discussion and written education on the concept of load/demand and capacity/tolerance was provided. This education was linked with the patients diagnosis as well as options in proceeding with this treatment procedure. Movements with tactile cues for relaxation of the abdominal wall - constant feedback with cues for letting abdominal wall go Quadruped rocking back Supine knee to chest - patient requires consistent and ongoing cues for relaxing the abdominal wall This improves tension/tightness sesnation across the hip to relax the body Therapeutic Activities - to improve ability to perform dynamic functional movements x 10 minutes Supine to sit movement Rolling movement Sit to stand Single leg sit to stand - patient can't do this on the right side, is surprised by this and doesn'tquite understand how this can be the case Bending in sitting - can do this on the way down, on the back up this hurts quite a bit Bending in standing - too difficult, can't relax very painful across the low back Home program Education - review and consider the impact of tensing the abodminal wall on back weakness. Making sense as to why her hip hurts Relaxation skills - encouragement to relax the body and abdominal wall Movement - knee to chest, quad rocking back, rolling, coming up to sit, sit to stand without protective body guarding. ASSESSMENT/PLAN: High levels of muscle co contraction around abdominal wall, lumbar spine and pelvis contributing toload intolerance. Patient feels vulnerable to relax her body. With cues able to feel less tension during movement. Continue to help her make sense of her pain via experimentation with difficult movements including forward bending and loading through the right leg during transition movements - step exam next visit. GOALS: run CHARGES: Neuromuscular Re-education: 60 minutes Therapeutic activities: 10 minutes Timed Code Treatment Minutes: 70 Total Treatment Minutes: 70 Therapist: Jun Veronica PT, DPT documented in this encounter Plan of Treatment Not on file documented as of this encounter Visit Diagnoses Diagnosis Pain of right hip- Primary SI (sacroiliac) joint dysfunction (HRC) Disorders of sacrum documented in this encounter Care Teams Agricultural Technician Relationship Specialty Start Date End Date Pcp, [place] [address] PCP - General 12/12/16 documented as of this encounter
--- OUTSIDE RECORDS SUMMARY | 2023-07-19 10:09 | XMS_ITS | Encounter Summary ---
Author Name Unknown Organization [facility] Address [address] [place] [address] Care Team Providers Care Nurse Licensed Practical Name Role Phone Pcp, Pt Declines Primary Care Provider [phone] Reason for Referral * Therapies (Routine) - New Request Specialty Diagnoses / Procedures Referred By Otto bhatia Referred To Contact Diagnoses Pain of right hip Dmitriy Lawrence MD [address] [facility] [place] [address] Referral ID Status Reason Start Date Expiration Date V isits Requested Visits Authorized [id number] New Request 02/17/2023 02/17/2024 999 999 Scheduling Instructions Your clinician has recommended an appointment with [facility]. You can quickly make your appointment online at [employer] [facility]/schedule. You can also call [phone] for help scheduling your appointment. We suggest you call your health insurance company about your coverage and benefits for this appointment. Question Answer Appointment Urgency? Non-Urgent Requested Services Evaluate and treat May use saline for irrigation or cleansing Yes RFV/Clin Data right hip pain dexamethasone use Yes May check glucose per protocol (see policy link below) or if patient has symptoms? Yes * Procedure/Equipment (Routine) - Incomplete Specialty Diagnoses / Procedures Referred By Contwillie t Referred To Contact Diagnoses Pain of right hip Procedures XR Hip Rt 1 View Dmitriy Lawrence MD [address] [facility] [place] [address] Referral ID Status Reason Start Date Expiration Date V isits Requested Visits Authorized [id number] Incomplete 02/17/2023 05/18/2024 1 1 * Procedure/Equipment (Routine) - Incomplete Specialty Diagnoses / Procedures Referred By Contac t Referred To Contact Diagnoses Pain of right hip Procedures XR Pelvis 1-2 Views Dmitriy Lawrence MD [address] [facility] [place] [address] Referral ID Status Reason Start Date Expiration Date V isits Requested Visits Authorized [id number] Incomplete 02/17/2023 05/18/2024 1 1 Reason for Visit * Reason Comments HIP PAIN right Encounter Details Date Type Department Care Team Description 02/17/2023 2:00 PM CDT Office Visit [facility] [address] [place] [address] Dmitriy Lawrence MD [address] [place] [address] [address] [place] [id number] Pain of right hip (Primary Dx); Tendinitis of right hip flexor Social History Tobacco Use Types Packs/Day Years [...] * Patient Instructions* Kendrick Ray ATC - 02/17/2023 2:00 PM CDT Thank you for Choosing [facility] for your health care visit today. Dr. Dmitriy Lawrence MD Orthopaedic Surgeon To schedule Physical Therapy or Hand Therapy at a [facility] locations, please call [phone] [facility] Hand Therapy [address] [facility] Hand Therapy [address] [facility] [address] [facility] [address] documented in this encounter Progress Notes * Dmitriy Lawrence MD - 02/17/2023 2:00 PM CDT SUMMARY OF CLINICAL VISIT DIAGNOSIS: Right hip flexor tendonitis PLAN AND DISPOSITION: PT consisting hip flexor, abductor, and core stretching/strengthening. Followup for clinic reevaluation. IMAGING FOR NEXT VISIT: Consider MRI of right hip if patient remains symptomatic CHIEF COMPLAINT: Right hip pain HISTORY OF PRESENT ILLNESS: This is a generally healthy 42 y.o. female who I am seeing in consultation requested by SELF. History is obtained from the patient. Briefly, they report that she has been active in returning to running and has noted anterior hip pain for the last 4 months. She castillo been active in returning to running and has noted anterior hip painfor the last 4 months. Denies any preceding injury. She notes that she has taken a considerable amount of time off from running and thinks that she may have aggravated her hip. When specifically asked to describe the pain [...] pain. Previous treatment includes activity modification and home exercises with significant pain relief. REVIEW OF SYSTEMS Constitutional: no history [...] lesions noted. IMPRESSION: Right hip flexor tendonitis Suggested Diagnostic/Therapeutic Plan: I reviewed the patients imaging, physical exam, and history findings in full detail. After discussion I recommended physical therapy consisting hip flexor, abductor, and core stretching/strengthening. Follow up for clinic reevaluation in 3 months or sooner if symptoms persist. If she continues to be symptomatic at that time we will consider MRI of right hip and diagnostic injection. Scribe Disclosure: Scribed for Dmitriy Lawrence MD by clayton Ruiz, on 02/17/2023 at 7:36 PM. I, Dmitriy Lawrence MD, have personally reviewed and agreed with the information entered by the scribe. A total of 60 minutes was spent on this visit in reviewing the chart, interpreting images, seeing and evaluatingthe patient, discussing treatment, coordinating care, and completing documentation. Dmitriy Lawrence MD 02/17/2023, 9:17 AM documented in this encounter Plan of Treatment Scheduled Referrals Name Type Priority Associated Diagnoses Orde r Schedule Physical Therapy Referral Routine Pain of right hip Ordered: 02/17/2023 documented as of this encounter Results * XR Hip Rt [...] hip- Primary Tendinitis of right hip flexor Pain of right hip documented in this encounter Care Teams Nurse Licensed Practical Relationship Specialty Start Date End Date Pcp, [place] [address] PCP - General 12/12/16 documented as of this encounter
[2023-07-19 17:14] LABS: Chlamydia DNA Amplified* NOT DETECTED (No Detected); GC DNA Amplified* NOT DETECTED (No Detected)
== END 2023-07-19 10:07 | disposition home or self-care (01) ==
PROVIDERS: Visit Provider Obstetrics & Gynecology
DX: Z11.3 Encounter for screening for infections with a predominantly sexual mode of transmission (principal); Z13.29 Encounter for screening for other suspected endocrine disorder
CPT/HCPCS: 80061; 82947; 84443; 86592; 86703; 86803; 87340; 87491; 87591

== ENCOUNTER 2023-08-30 08:23 | Outpatient (CLI) | payer BC, SELFPAY ==
--- NOTE | 2023-08-30 08:15 | MM_ITS ---
Patient: GITA HEAD Facility:?[facility] Patient ID:?[id number] Site Patient ID:?[id number]. Site :?[id number] Study:?XRay-Breast Bilateral 3D W/CAD-08/30/2023 9:13:22 AM Ordering Physician:Gina Townsend Final Report: BILATERAL SCREENING MAMMOGRAM WITH COMPUTER-AIDED DETECTION AND TOMOSYNTHESIS TECHNIQUE: CC and MLO views were obtained. These mammographic images have been obtained using full-field digital technique. These mammographic images were interpreted with the benefit of computer-aided detection. Breast Tomosynthesis was used in this interpretation. COMPARISON FILM: 08/18/22, 01/06/20, 01/02/19. FINDINGS: The breasts are heterogeneously dense, which may obscure small masses. IMPRESSION: There is no radiographic evidence for malignancy. ASSESSMENT: BI-RADS Category 2: Benign RECOMMENDATION: Routine screening mammogram in 1 year. A lay language report of this examination will be provided to the patient. Cheikh Garcia M.D. Diagnostic Radiologist [email or web address] DSM/sp R& Transcribed: 2:22 p.m. SP/Dictated by: Cheikh Garcia MD @ 08/30/2023 11:26:00 AM Signed by:?Cheikh Garcia MD @08/30/2023 2:26:26 PM (Electronic Signature)
== END 2023-08-30 08:24 | disposition home or self-care (01) ==
PROVIDERS: Visit Provider Obstetrics & Gynecology
DX: Z12.31 Encounter for screening mammogram for malignant neoplasm of breast (principal); R92.2 Inconclusive mammogram; Z13.6 Encounter for screening for cardiovascular disorders; Z13.1 Encounter for screening for diabetes mellitus
CPT/HCPCS: 77063; 77067; 80061; 82947

== ENCOUNTER 2024-02-21 07:17 | Outpatient (CLI) | payer BC, SELFPAY ==
--- NOTE | 2024-02-21 07:15 | CRLHL7_ITS ---
For Patients: As a result of the 21st Century Cures Act, medical imaging exams and procedure reports are released immediately into your electronic medical record. You may view this report before your referring provider. If you have questions, please contact your health care provider. BILATERAL BREAST MRI WITHOUT AND WITH GADOLINIUM CLINICAL HISTORY: 43-year-old with elevated risk of breast carcinoma. Mother with breast cancer diagnosed at age 36. INDICATION FOR BREAST MRI: Screening breast MRI in this high risk woman. COMPARISON STUDIES: MRI: 11/26/2021, 02/16/2023 Mammogram 08/30/2023, 08/18/2022 CONTRAST: 20 mL Dotarem TECHNIQUE: The patient was positioned prone using a breast coil. Multiple imaging sequences were obtained using 1-1.5 mm thick slices with no gap. The image sequences include T2-weighted STIR in the axial plane, T1-weighted nonfat-saturated gradient echo in the axial plane, pre- and post-contrast T1-weighted FLASH 3D with fat suppression in the axial plane, and T1-weighted FLASH high resolution 3D with fat suppression in the sagittal plane. Image post-processing was performed on a [employer] workstation. Complex 3D rendering including maximum intensity projections (MIPS) and volumetric renderings were obtained to optimize visualization of the extent of pathology and relationship to the nipple, skin, and chest wall. This aids in determining feasibility of breast conservation surgery. Subtraction, multiplanar reconstruction, mean curve determination, and angiogenesis mapping were also performed. The study was technically adequate. FINDINGS: Amount of Fibroglandular Tissue: Heterogeneous fibroglandular tissue. Breast Background Enhancement: Moderate RIGHT Breast: No suspicious mass or non-mass enhancement. LEFT Breast: No suspicious mass or non-mass enhancement. Lymph Nodes: No lymphadenopathy IMPRESSIONS AND RECOMMENDATIONS: 1. No MRI evidence of malignancy in either breast. 2. Annual screening mammography is recommended. If clinically indicated, continued screening breast MRI may also be performed, staggered at six-month intervals with screening mammography. BI-RADS Category 1: Negative Dictated by Misti Marsh MD @ 02/23/2024 1:12:26 PM (Electronically Signed)
--- OUTSIDE RECORDS SUMMARY | 2024-02-21 07:21 | XMS_ITS | Clinical Summary ---
Author Organization [facility] Address [address] [place] [address] Care Team Providers Care Contact Centre Supervisor Name Role Phone Pcp, Pt Leyda JIN Primary Care Provider [phone] Source Comments You are receiving this document as you are listed as the primary care provider,follow-up provider, or the patient has been referred to you for consultation.This is in compliance with the Medicare andSouth[facility] General Health Centercaid EHR Incentive Program,which states Providers who transition their patient to another setting of careor provider of care or refers their patient to another provider of care shouldprovide summary care record for each transition of care or referral. [facility] Communication Allergies No known active allergies Medications Medication Sig Dispensed Refills Start Date End Date Status citalopram (CELEXA) 40 MG tablet Take 40 mg by mouth daily. Active valACYclovir (VALTREX) 1 G tablet Take 1,000 mg by mouth two times a day. Active hydrOXYzine pamoate (VISTARIL) 25 MG capsule Take 1-2 Caps by mouth 4 times daily as needed. 50 Cap 1 03/10/2017 Active HYDROcodone-acetaminophe n (NORCO) 5-325 MG tablet Take 1-2 Tabs by mouth every 4 hours as needed. 40 Tab 03/10/2017 Active LORazepam (ATIVAN) 1 MG tablet 01/13/2021 Active nitrofurantoin monohydrate macrocrystal (MACROBID) 100 MG capsule Take 100 mg by mouth two times a day. 12/02/2020 Active Active Problems No known active problems Social History Tobacco Use Types Packs/Day Years [...] 1982 Hep C Screening (Preventive Services) 1982 MTM Covered 1982 Mammogram 1982 IPV (Polio) (3 of 3 - 4-dose series) 08/13/1988 02/11/1988, 08/16/1984 HIV Screening (Preventive Services) 1998 Adult Preventive Visit 2000 HepB (1) 2001 COVID-19 Vaccine (2022-24 season) 2023 06/22/2021, 11/03/2020, 10/13/2020 Influenza (#1) 2024 DTaP/Tdap/Td (5 - Tdap) 12/26/2027 12/26/19 18, [...] this topic Medical Devices Implanted Type Area Tanyard Worker Device Identifier Shelf Expiration Date Model / Serial / Lot [facility] Rashard Lg Hex 6.5x50 16-Thrd - [id number] Implanted:Qty: 1 on 03/10/2017 by Roc Eddy MD at [facility] DEVICE Right: [employer] 03/10/2017 [id number] / NA / NA Care Teams Contact Centre Supervisor Relationship Specialty Start Date End Date Pcp, [place] [address] PCP - General 12/12/16
--- OUTSIDE RECORDS SUMMARY | 2024-02-21 07:21 | XMS_ITS | Clinical Summary ---
Author Organization [employer] [facility] [employer] [facility] Address [place], [place] [address] Care Team Providers Care Freight Air Brake Fitter Name Role Phone Jimmie Neal NP Primary Care Provider [phone] Allergies No known active allergies Medications Medication Sig Dispensed Refills Start Date End Date Status CITALOPRAM HYDROBROMIDE (CITALOPRAM ORAL) Take 40 mg by mouth once daily. Active CHOLECALCIFEROL, VITAMIN D3, (VITAMIN D3 ORAL) Take 1 tablet by mouth once daily. Active DOCOSAHEXANOIC ACID/EPA (FISH OIL ORAL) Take 1 capsule by mouth once daily. Active Crutch For home use. 1 Device [...] Health Maintenance Due Date Last Done Comments Tdap 1993 Depression screening for age 12+ 1994 HIV for age 15-65 1997 BMI (ht and wt on same day) for age 18+ 2000 Hepatitis C screening for age 18-79 2000 Tetanus booster 2002 Pap test for age 21-65 01/14/2023 0, 01/15/2020, 01/02/2019, Additional history exists COVID-19 vaccine series (2022- season) 2023 Influenza for age 9-49 03/03/2024 Pneumococcal series for age 6-64 Aged Out No longer eligible based on patient's age to complete this topic Procedures Procedure Name Priority Date/Time Associated Diagnosis Comments FORECLOSURE PARALEGAL THIN PREP PAP SCREEN IMAGED Routine 01/15/2020 11:00 AM CDT from Last 3 Months or Most Recently Relevant to Health Maintenance Results * FORECLOSURE PARALEGAL THIN PREP PAP SCREEN IMAGED (01/15/2020 11:00 AM CDT) Case Report Gynecologic Cytology Report ? Case: [id number] ? Authorizing Provider: ??Gina Catalan MD ?Collected: ? 01/15/2020 1100 ? Ordering Location: ? [facility] ?Received: ?01/16/2020 0849 ? First Screen: ?Moody Mcelroy ? Pathologist: ? Lauren Figueroa ? MD Yana ? Specimen: ?FORECLOSURE PARALEGAL ThinPrep Vial Screening, Cervical/Vaginal ? 01/20/2020 1:53 PM CDT [facility] INTERPRETATION/ RESULT NEGATIVE FOR INTRAEPITHELIAL LESION OR MALIGNANCY (NIL) (none) 01/20/2020 1:53 PM CDT [facility] R NON-NEOPLASTIC FINDING(S) Reactive cellular changes associated with inflammation/repa ir 01/20/2020 1:53 PM CDT [facility] SPECIMEN ADEQUACY Satisfactory for evaluation Endocervical component present 01/20/2020 1:53 PM CDT [facility] HPV REQUEST HPV and PAP 01/20/2020 1:53 PM CDT [facility] Date of LMP 01/04/2020 01/20/2020 1:53 PM CDT [facility] Last Pap Date 01/02/2019 01/20/2020 1:53 PM CDT [facility] Last Pap Result NIL 0 1:53 PM CDT [facility] Additional Information 01/20/2020 1:53 PM CDT [facility] Comment: Interpreted at [facility], Central Laboratory - [address], [place] [address] Automated Review Successful 01/20/2020 1:53 PM CDT [facility] Comment:Specimen processed s uccessfully by automated multi disciplined language analyst device, ThinPrep Imaging System, [employer] ANCILLARY TESTING FORECLOSURE PARALEGAL HPV Ordered, Please see separate report 01/20/2020 1:53 PM CDT [facility]- ENTRAL [facility] Note The pap test is a screening technique, not a diagnostic procedure. It is used primarily to screen for squamous cancers and precursor lesions. Published studies have shown that it is subject to both false negative and false positive results. The pap test should not be used as the sole means to diagnose or exclude pre-malignant and malignant lesions. 01/20/2020 1:53 PM CDT [facility] Other (Cervical/Vagina l) 01/15/2020 11:00 AM CDT 01/16/2020 8:49 AM CDT Gina Catalan MD [facility] [address] [place] [address], [place] from Last 3 Months or Most Recently Relevant to Health Maintenance Care Teams Freight Air Brake Fitter Relationship Specialty Start Date End Date Jimmie Neal NP PCP - General Nurse Practitioner 10/18/13
== END 2024-02-21 07:18 | disposition home or self-care (01) ==
LOC: MRI 07:19
PROVIDERS: Visit Provider Surgery
DX: Z12.39 Encounter for other screening for malignant neoplasm of breast (principal); Z91.89 Other specified personal risk factors, not elsewhere classified; Z80.3 Family history of malignant neoplasm of breast
CPT/HCPCS: 77049; A9575

== ENCOUNTER 2024-03-15 13:30 | Outpatient (CLI) | payer BC, SELFPAY ==
--- OUTSIDE RECORDS SUMMARY | 2024-03-15 13:34 | XMS_ITS | Clinical Summary ---
Author Organization [employer] [facility] [employer] [facility] Address [place], [place] [address] Care Team Providers Care Reel Worker Name Role Phone Jimmie Neal NP Primary Care Provider [phone] Allergies No known active allergies Medications Medication [...] 01/02/2019, Additional history exists COVID-19 vaccine series ( season) 2024 Influenza for age 9-49 03/03/2024 Pneumococcal series for age 6-64 Aged Out No longer eligible based on patient's age to complete this topic Procedures Procedure Name Priority Date/Time Associated Diagnosis Comments GENERAL PEDIATRICIAN THIN PREP PAP SCREEN IMAGED Routine 01/15/2020 11:00 AM CDT from Last 3 Months or Most Recently Relevant to Health Maintenance Results * GENERAL PEDIATRICIAN THIN PREP PAP SCREEN IMAGED (01/15/2020 11:00 AM CDT) Case Report Gynecologic Cytology Report ? Case: [id number] ? Authorizing Provider: ??Gina Catalan MD ?Collected: ? 01/15/2020 1100 ? Ordering Location: ? [facility] ?Received: ?01/16/2020 0849 ? First Screen: ?Moody Mcelroy ? Pathologist: ? Lauren Figueroa ? MD Yana ? Specimen: ?GENERAL PEDIATRICIAN ThinPrep Vial Screening, Cervical/Vaginal ? 01/20/2020 1:53 PM CDT [facility] INTERPRETATION/ RESULT NEGATIVE FOR INTRAEPITHELIAL LESION OR MALIGNANCY (NIL) (none) 01/20/2020 1:53 PM CDT [facility] R NON-NEOPLASTIC FINDING(S) Reactive cellular changes associated with inflammation/repa ir 01/20/2020 1:53 PM CDT [facility] SPECIMEN ADEQUACY Satisfactory for evaluation Endocervical component present 01/20/2020 1:53 PM CDT [facility] HPV REQUEST HPV and PAP 01/20/2020 1:53 PM CDT [facility] Date of LMP 01/04/2020 01/20/2020 1:53 PM CDT [facility] Last Pap Date 01/02/2019 01/20/2020 1:53 PM CDT [facility] Last Pap Result NIL 0 1:53 PM CDT [facility] Additional Information 01/20/2020 1:53 PM CDT [facility] Comment: Interpreted at [facility], Central Laboratory - [address], [place] [address] Automated Review Successful 01/20/2020 1:53 PM CDT [facility] Comment:Specimen processed s uccessfully by automated cover seamer device, ThinPrep Imaging System, [employer] ANCILLARY TESTING GENERAL PEDIATRICIAN HPV Ordered, Please see separate report 01/20/2020 1:53 PM CDT [facility] EN[facility] Note The pap test [...] and malignant lesions. 01/20/2020 1:53 PM CDT [facility] Other (Cervical/Vagina l) 01/15/2020 11:00 AM CDT 01/16/2020 8:49 AM CDT Gina Catalan MD [facility] [address] [place] [address], [place] from Last 3 Months or Most Recently Relevant to Health Maintenance Care Teams Reel Worker Relationship Specialty Start Date End Date Jimmie Neal NP PCP - General Nurse Practitioner 10/18/13
--- OUTSIDE RECORDS SUMMARY | 2024-03-15 13:34 | XMS_ITS | Clinical Summary ---
Author Organization [facility] Address [address] [place] [address] Care Team Providers Care Drywall Carrier Name Role Phone Pcp, Pt Leyda JIN Primary Care Provider [phone] Source Comments You are receiving this document as you are listed as the primary care provider,follow-up provider, or the patient has been referred to you for consultation.This is in compliance with the Medicare and[facility] EHR Incentive Program,which states Providers who transition their patient to another setting of careor provider of care or refers their patient to another provider of care shouldprovide summary care record for each transition of care or referral. [facility] Allergies No known active allergies Medications Medication [...] HepB (1) 2001 COVID-19 Vaccine (2022-24 season) 2024 06/22/2021, 11/03/2020, 10/13/2020 Influenza (#1) 2024 DTaP/Tdap/Td [...] this topic Medical Devices Implanted Type Area Market Research Coordinator Device Identifier Shelf Expiration Date Model / Serial / Lot [facility] Rashard Lg Hex 6.5x50 16-Thrd - [id number] Implanted:Qty: 1 on 03/10/2017 by Roc Eddy MD at [facility] [employer] Right: [employer] 03/10/2017 [id number] / NA / NA Care Teams Drywall Carrier Relationship Specialty Start Date End Date Pcp, [place] [address] PCP - General 12/12/16
== END 2024-03-15 13:31 | disposition home or self-care (01) ==
PROVIDERS: Visit Provider Obstetrics & Gynecology
DX: R11.2 Nausea with vomiting, unspecified (principal); R53.83 Other fatigue
CPT/HCPCS: 80076; 82306; 83690; 84443

== ENCOUNTER 2024-09-02 08:22 | Outpatient (CLI) | payer BC, SELFPAY | END 2024-09-02 08:23 | disposition home or self-care (01) | PROVIDERS: Visit Provider Surgery | DX: Z12.31 Encounter for screening mammogram for malignant neoplasm of breast (principal) | CPT/HCPCS: 77063; 77067 ==

== ENCOUNTER 2024-10-16 09:39 | Outpatient (CLI) | payer BC, SELFPAY ==
[2024-10-18 04:01] LABS: HPV Source Cervix; HPV, High Risk by TMA Not Detected
== END 2024-10-16 09:40 | disposition home or self-care (01) ==
PROVIDERS: Visit Provider Obstetrics & Gynecology
DX: Z12.4 Encounter for screening for malignant neoplasm of cervix (principal); Z11.51 Encounter for screening for human papillomavirus (HPV)
CPT/HCPCS: 87624; 87625; 88141; 88142

== ENCOUNTER 2025-03-04 09:19 | Outpatient (CLI) | payer BC, SELFPAY ==
--- NOTE | 2025-03-04 09:15 | CRLHL7_ITS ---
For Patients: As a result of the 21st Century Cures Act, medical imaging exams and procedure reports are released immediately into your electronic medical record. You may view this report before your referring provider. If you have questions, please contact your health care provider. BILATERAL BREAST MRI WITHOUT AND WITH GADOLINIUM CLINICAL HISTORY: 44-year-old female with elevated risk of breast cancer due to strong family history. INDICATION FOR BREAST MRI: Screening breast MRI in this high-risk woman. COMPARISON STUDIES: Mammogram 09/02/2024, breast MRI 02/21/2024 and 02/16/2023. CONTRAST: 20 mL Dotarem IV. TECHNIQUE: The patient was positioned prone using a breast coil. Multiple imaging sequences were obtained using 1-1.5 mm thick slices with no gap. The image sequences include T2-weighted STIR in the axial plane, T1-weighted nonfat-saturated gradient echo in the axial plane, pre- and post-contrast T1-weighted FLASH 3D with fat suppression in the axial plane, and T1-weighted FLASH high resolution 3D with fat suppression in the sagittal plane. Image post-processing was performed on a [employer] workstation. Complex 3D rendering including maximum intensity projections (MIPS) and volumetric renderings were obtained to optimize visualization of the extent of pathology and relationship to the nipple, skin, and chest wall. This aids in determining feasibility of breast conservation surgery. Subtraction, multiplanar reconstruction, mean curve determination, and angiogenesis mapping were also performed. The study was technically adequate. FINDINGS: Amount of Fibroglandular Tissue: Scattered fibroglandular tissue. Breast Background Enhancement: Moderate. RIGHT Breast: No suspicious areas of enhancement. LEFT Breast: At 7 o`clock, middle depth, approximately 8 cm from the nipple, there is an irregular mass with irregular margins and heterogeneous internal enhancement measuring 0.7 x 1.0 x 0.5 cm. This demonstrates fast initial enhancement with washout. Lymph Nodes: No adenopathy. IMPRESSIONS AND RECOMMENDATIONS: LEFT breast: 1. Mass at 7 o`clock, middle depth, measuring up to 1.0 cm on MRI is suspicious. Recommend targeted ultrasound and ultrasound-guided biopsy. If there is no sonographic correlate an MRI guided biopsy is recommended. 2. No adenopathy. RIGHT breast: Negative, there is no MRI evidence of contralateral malignancy. BI-RADS Category 4: Suspicious Dictated by Charis Melo MD @ 03/10/2025 2:56:40 PM /sp SP/Dictated by: Charis Melo MD @ 03/10/2025 2:56:00 PM (Electronically Signed)
== END 2025-03-04 09:20 | disposition home or self-care (01) ==
LOC: MRI 09:20
PROVIDERS: Visit Provider Surgery
DX: Z12.39 Encounter for other screening for malignant neoplasm of breast (principal); N63.20 Unspecified lump in the left breast, unspecified quadrant; Z80.3 Family history of malignant neoplasm of breast
CPT/HCPCS: 77049; A9575

== ENCOUNTER 2025-03-21 10:09 | Outpatient (CLI) | payer BC, SELFPAY ==
--- NOTE | 2025-03-21 10:15 | CRLHL7_ITS ---
For Patients: As a result of the Cures Act, medical imaging exams and procedure reports are released immediately into your electronic medical record. You may view this report before your referring provider. If you have questions, please contact your health care provider. LEFT BREAST ULTRASOUND CLINICAL HISTORY: LEFT breast mass/asymmetry. COMPARISON: Breast MRI 03/04/2025. TECHNIQUE: Real-time ultrasound imaging of LEFT breast with imaging documentation. Scanning was performed by both the technologist and the radiologist. FINDINGS: Targeted sonogram LEFT breast 7 o`clock 7-8 cm from the nipple performed. In this location, there is a solid hypoechoic lobular nodule measuring 8 x 4 x 6 mm, correlating with the MRI finding. IMPRESSION: Indeterminate hypoechoic nodule LEFT breast 7 o`clock 7-8 cm from the nipple measuring 8 x 4 x 6 mm. RECOMMENDATIONS: Ultrasound-guided biopsy will be performed subsequently. Results and recommendations were discussed with the patient at the time of the exam. A lay language report of this examination will be provided to the patient. BI-RADS Category 4: Suspicious Dictated by Cheikh Garcia MD @ 03/21/2025 11:39:43 AM /sp SP/Dictated by: Cheikh Garcia MD @ 03/21/2025 11:39:00 AM (Electronically Signed)
--- NOTE | 2025-03-21 10:15 | CRLHL7_ITS ---
For Patients: As a result of the 21st Century Cures Act, medical imaging exams and procedure reports are released immediately into your electronic medical record. You may view this report before your referring provider. If you have questions, please contact your health care provider. ULTRASOUND-GUIDED LEFT BREAST BIOPSY AND POST-BIOPSY DIGITAL MAMMOGRAM FOR BIOPSY MARKER PLACEMENT CLINICAL HISTORY: Indeterminate nodule. COMPARISON STUDIES: US breast 03/21/2025, MRI 03/04/2025, mammogram 09/02/2024. TECHNIQUE: Real-time ultrasound with image documentation was used for targeting the breast lesion. Core biopsy specimens were obtained using an automated gun with an 18-gauge biopsy needle. Post-biopsy CC and ML digital mammograms were obtained to document position of the biopsy marker. CONSENT and TIME OUT: The procedure, risks, and alternatives were explained to the patient and a consent was signed. [place] Protocol was followed including pre-procedure verification that relevant information/documentation was available, reviewed and properly matched to the patient; consent accurate and complete; and equipment and supplies available. Time Out was conducted just prior to starting procedure to verify the four required elements: patient identity, correct side/site marked (if applicable), procedure, relevant images/results properly labeled and displayed (if applicable). PROCEDURE: The patient was positioned supine on the ultrasound table. The breast was prepped with ChloraPrep. 7 cc of 1 percent lidocaine used for local anesthesia. Core samples were obtained. A sterile metal biopsy clip was placed percutaneously to sean the lesion position within the breast. The specimens were placed in 10% formalin and sent to the pathology department. Pressure was held on the biopsy site until all bleeding subsided. The skin incision was closed with Steri-Strips. An ice pack was positioned over the biopsy site. Post-biopsy instructions were reviewed with the patient, and a written copy was given to her. LATERALITY: LEFT breast. LESION: Solid hypoechoic lobular nodule measuring 8 x 4 x 6 mm at 7 o`clock 7-8 cm from the nipple. SUSPICION FOR MALIGNANCY: Intermediate. NUMBER OF SAMPLES: 5. BIOPSY CLIP SHAPE: Oval. PROXIMITY OF CLIP TO TARGET: Within the lesion. IMPRESSION: Ultrasound-guided breast biopsy. When the pathology report is available, an addendum to this report will be made. ACR not applicable Dictated by Cheikh Garcia MD @ 03/21/2025 11:40:56 AM /sp SP/Dictated by: Cheikh Garcia MD @ 03/21/2025 11:40:00 AM (Electronically Signed)
--- NOTE | 2025-03-21 11:00 | CRLHL7_ITS ---
For Patients: As a result of the Cures Act, medical imaging exams and procedure reports are released immediately into your electronic medical record. You may view this report before your referring provider. If you have questions, please contact your health care provider. PLEASE SEE LEFT ULTRASOUND-GUIDED BIOPSY OF SAME DAY. CRL:lester DOBBINS/Dictated by: Cheikh Garcia MD @ 03/24/2025 9:13:00 AM (Electronically Signed)
== END 2025-03-21 10:10 | disposition home or self-care (01) ==
LOC: US 10:10
PROVIDERS: Visit Provider Surgery
DX: N63.20 Unspecified lump in the left breast, unspecified quadrant (principal); R92.8 Other abnormal and inconclusive findings on diagnostic imaging of breast
CPT/HCPCS: 19083; 76642; 77065; A4648; A4649